=== PATIENT | female | born 1975 | race American Indian/Alaskan Native ===

== ENCOUNTER 2021-11-23 15:38 | Emergency (ER) | payer SELFPAY ==
[2021-11-23 16:16] VITALS: BP 160/85
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
[2021-11-23] MEDS ORDERED: KETOROLAC 10 MG TAB PO ONE (17:37)
[2021-11-23] MEDS ORDERED: CYCLOBENZAPRINE 10 MG TAB PO ONE (17:37)
== END 2021-11-23 18:28 | disposition home or self-care (01) ==
LOC: ED 15:38
DX: M54.50 Low back pain, unspecified (principal); I10 Essential (primary) hypertension; E11.9 Type 2 diabetes mellitus without complications; J45.909 Unspecified asthma, uncomplicated; Z79.899 Other long term (current) drug therapy; V87.7XXA Person injured in collision between other specified motor vehicles (traffic), initial encounter; Y93.89 Activity, other specified; Y92.488 Other paved roadways as the place of occurrence of the external cause; Y99.8 Other external cause status
CPT/HCPCS: 99282

== ENCOUNTER 2021-11-30 09:28 | Emergency (ER) | payer SELFPAY ==
[2021-11-30 10:38] VITALS: BP 175/100
[2021-11-30] MEDS ORDERED: CYCLOBENZAPRINE 10 MG TAB PO ONE (10:40)
[2021-11-30] MEDS ORDERED: KETOROLAC 10 MG TAB PO ONE (10:40)
--- NOTE | 2021-11-30 12:02 | XRay Report ---
RIGHT SHOULDER 3 VIEWS INDICATION: Right shoulder pain. COMPARISON: None. IMPRESSION: No acute osseous or soft tissue abnormality. No significant DJD. Signer Name: Jean San Jr, MD Signed: 11/30/2021 11:57 AM Workstation Name: [id number]
--- NOTE | 2021-11-30 12:32 | Emergency Department Report ---
ED Extremity Problem HPI - General Chief complaint: Shoulder Injury Stated complaint: RT ARM INJURY Time Seen by Provider: 11/30/21 10:38 Source: patient Mode of arrival: Ambulatory Limitations: No Limitations - History of Present Illness Initial comments: 45-year-old black female with no past medical history sent to the emergency department for evaluation of right shoulder pain. She states that she lifted some trash and fluid into the trash can yesterday and has had right shoulder and arm pain since then. She states that she is having problems lifting her arm overhead. She denies any other injury and fever. MD Complaint: extremity pain -: Sudden, days(s) (1) Location: right, upper extremity History of Same: No -: No myalgia, No arthralgia, No fever, No associated dyspnea, No associated chest pain Quality: aching Consistency: constant Worsens with: other (Movement) Associated Symptoms: denies: chest pain, shortness of breath, fever, myalgias, arthralgias, rash - Related Data Previous Rx's Medication Instructions Recorded Last Taken Type Cyclobenzaprine [Flexeril] 10 mg PO TID PRN #20 11/23/21 Unknown Rx Lidocaine [Salonpas] 1 each TP DAILY #7 patch 11/23/21 Unknown Rx Naproxen [Naprosyn] 500 mg PO BID PRN #20 tablet 11/23/21 Unknown Rx Cyclobenzaprine [Flexeril] 10 mg PO TID PRN #30 tab 11/30/21 Unknown Rx Ketorolac [Toradol] 10 mg PO Q6H PRN #12 tab 11/30/21 Unknown Rx Lidocaine [Lidoderm] 1 each TP DAILY PRN #10 patch 11/30/21 Unknown Rx Allergies Allergy/AdvReac Type Severity Reaction Status Date / Time No Known Allergies Allergy Unverified 11/23/21 16:13 ED Review of Systems ROS: Stated complaint: RT ARM INJURY Other details as noted in HPI Comment: All other systems reviewed and negative Constitutional: denies: chills, fever Respiratory: denies: shortness of breath Cardiovascular: denies: chest pain, palpitations Gastrointestinal: denies: abdominal pain, nausea, vomiting Musculoskeletal: denies: back pain Neurological: denies: headache, weakness ED Past Medical Hx - Past Medical History Hx Hypertension: Yes Hx Diabetes: Yes Hx Asthma: Yes - Social History Smoking Status: Unknown if ever smoked Substance Use Type: None - Medications Home Medications: Home Medications Medication Instructions Recorded Confirmed Last Taken Type Cyclobenzaprine [Flexeril] 10 mg PO TID PRN #20 11/23/21 Unknown Rx Lidocaine [Salonpas] 1 each TP DAILY #7 patch 11/23/21 Unknown Rx Naproxen [Naprosyn] 500 mg PO BID PRN #20 tablet 11/23/21 Unknown Rx Cyclobenzaprine [Flexeril] 10 mg PO TID PRN #30 tab 11/30/21 Unknown Rx Ketorolac [Toradol] 10 mg PO Q6H PRN #12 tab 11/30/21 Unknown Rx Lidocaine [Lidoderm] 1 each TP DAILY PRN #10 patch 11/30/21 Unknown Rx ED Physical Exam - General Limitations: No Limitations General appearance: alert, in no apparent distress - Head Head exam: Present: atraumatic, normocephalic - Eye Eye exam: Present: normal appearance. Absent: conjunctival injection - Neck Neck exam: Present: normal inspection - Respiratory Respiratory exam: Absent: respiratory distress, chest wall tenderness - Cardiovascular Cardiovascular Exam: Present: regular rate - GI/Abdominal GI/Abdominal exam: Absent: distended - Expanded Upper Extremity Exam Right Shoulder Exam: Present: full ROM, tenderness, tenderness over AC joint. Absent: swelling, abrasion, laceration, ecchymosis, deformity, crepidus, dislocation, erythema Upper Arm exam: Present: normal inspection Elbow exam: Present: normal inspection Forearm Wrist exam: Present: normal inspection Hand Wrist exam: Present: normal inspection Vascular: Present: normal capillary refill, radial pulse. Absent: vascular compromise, Pallo - Back Exam Back exam: Present: normal inspection - Neurological Exam Neurological exam: Present: alert, oriented X3. Absent: normal gait - Psychiatric Psychiatric exam: Present: normal affect, normal mood - Skin Skin exam: Present: warm, dry, intact, normal color ED Course Vital Signs 11/30/21 10:37 Temperature 98.5 F Pulse Rate 85 Respiratory 18 Rate Blood Pressure 175/100 [Left] O2 Sat by Pulse 99 Oximetry ED Medical Decision Making - Radiology Data Radiology results: report reviewed, image reviewed Right shoulder xray: IMPRESSION: No acute osseous or soft tissue abnormality. No significant DJD. - Medical Decision Making 45-year-old black female with no past medical history sent to the emergency department for evaluation of right shoulder pain. She states that she lifted some trash and fluid into the trash can yesterday and has had right shoulder and arm pain since then. She states that she is having problems lifting her arm overhead. She denies any other injury and fever. Right shoulder x-ray without any acute abnormalities noted. Patient discharged home with naproxen, Flexeril, and Lidoderm patches to use as directed. She is advised to follow-up with her primary care provider if no improvement or worsening symptoms and return to the emergency department as needed. She verbalizes understanding of and agreement with plan of care. Critical care attestation.: If time is entered above; I have spent that time in minutes in the direct care of this critically ill patient, excluding procedure time. ED Disposition Clinical Impression: Right shoulder pain Qualifiers: Chronicity: acute Qualified Code(s): M25.511 - Pain in right shoulder Disposition: 01 HOME / SELF CARE / HOMELESS Is pt being admited?: No Does the pt Need Aspirin: No Condition: Stable Instructions: How to Use Cold Therapy, [id number], Shoulder Pain, Easy -to-Read, Musculoskeletal Pain Prescriptions: Cyclobenzaprine [Flexeril] 10 mg PO TID PRN #30 tab PRN Reason: Muscle Spasm Lidocaine [Lidoderm] 1 each TP DAILY PRN #10 patch PRN Reason: Pain, Moderate (4-6) Ketorolac [Toradol] 10 mg PO Q6H PRN #12 tab PRN Reason: Pain Referrals: ALE GILLILAND MD [Staff Physician] - 3-5 Days Forms: Work/School Release Form(ED) Time of Disposition: 12:39
== END 2021-11-30 14:19 | disposition home or self-care (01) ==
LOC: ED 09:28
DX: M25.511 Pain in right shoulder (principal); I10 Essential (primary) hypertension; E11.9 Type 2 diabetes mellitus without complications; J45.909 Unspecified asthma, uncomplicated; Z79.899 Other long term (current) drug therapy
CPT/HCPCS: 99283

== ENCOUNTER 2021-12-22 22:50 | Emergency (ER) | payer SELFPAY ==
[2021-12-23 00:42] LABS: Basophils # (Auto) 0.1 K/mm3 (0.0-0.1); Eosinophils # (Auto) 0.2 K/mm3 (0.0-0.4); Eosinophils % (Auto) 3.1 % (0.0-4.3); Hematocrit 29.6 % (30.3-42.9); Hemoglobin 9.7 gm/dl (10.1-14.3); Lymphocytes # (Auto) 1.8 K/mm3 (1.2-5.4); Lymphocytes % (Auto) 26.5 % (13.4-35.0); Mean Corpuscular HGB Conc 33 % (30-34); Mean Corpuscular Volume 80 fl (79-97); Monocytes # (Auto) 0.6 K/mm3 (0.0-0.8); Monocytes % (Auto) 8.2 % (0.0-7.3); Platelet Count 323 K/mm3 (140-440); Red Cell Distribution Width 14.9 % (13.2-15.2)
[2021-12-23 00:48] LABS: Mucus,Urine 1+ /HPF; RBC,Urine < 1.0 /HPF (0.0-6.0)
[2021-12-23 01:01] LABS: Color,Urine Yellow (Yellow)
--- NOTE | 2021-12-23 03:26 | Ultrasound Report ---
ULTRASOUND PELVIS INDICATION / CLINICAL INFORMATION: vag bleed. TECHNIQUE: Transabdominal. Duplex Color Doppler used: Yes. COMPARISON: None available FINDINGS: UTERUS: Uterus measures 9.5 x 5.95 x 6.6 cm. Within the posterior fundus, subserosal hypoechoic mass compatible with fibroid measures 1.9 x 1.5 x 2.9 cm. The endometrial stripe measures approximately 3 mm. RIGHT ADNEXA: Right ovary not identified. LEFT ADNEXA: Left ovary not identified. URINARY BLADDER: No significant abnormality. FREE FLUID: None. ADDITIONAL FINDINGS: None. IMPRESSION: 1. Posterior subserosal uterine fibroid. Signer Name: Tha Leone II, MD Signed: 12/23/2021 3:22 AM Workstation Name: [id number]
--- NOTE | 2021-12-23 06:28 | Emergency Department Report ---
ED Female HPI - General Chief complaint: Vaginal Bleeding Stated complaint: VAGINAL BLEEDING Time Seen by Provider: 12/23/21 06:23 Source: patient Mode of arrival: Ambulatory Limitations: No Limitations - History of Present Illness Initial comments: Patient 46-year-old female with history of menorrhagia who presents with vaginal bleeding for 4 days. Patient complains of 4/10 abdominal cramping. There is no fevers no chills no nausea or vomiting. Patient has history of uterine fibroids. 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 Requesting Provera for vaginal bleeding. Patient denies other symptoms patient is not a smoker. MD Complaint: vaginal bleeding - Related Data Previous Rx's Medication Instructions Recorded Last Taken Type Cyclobenzaprine [Flexeril] 10 mg PO TID PRN #20 11/23/21 Unknown Rx Lidocaine [Salonpas] 1 each TP DAILY #7 patch 11/23/21 Unknown Rx Naproxen [Naprosyn] 500 mg PO BID PRN #20 tablet 11/23/21 Unknown Rx Cyclobenzaprine [Flexeril] 10 mg PO TID PRN #30 tab 11/30/21 Unknown Rx Ketorolac [Toradol] 10 mg PO Q6H PRN #12 tab 11/30/21 Unknown Rx Lidocaine [Lidoderm] 1 each TP DAILY PRN #10 patch 11/30/21 Unknown Rx Ibuprofen [Motrin 800 MG tab] 800 mg PO Q8HR PRN #30 tablet 12/23/21 Unknown Rx medroxyPROGESTERone ACETATE 10 mg PO DAILY PRN #10 tab 12/23/21 Unknown Rx [Provera] Allergies Allergy/AdvReac Type Severity Reaction Status Date / Time No Known Allergies Allergy Unverified 11/23/21 16:13 ED Review of Systems ROS: Stated complaint: VAGINAL BLEEDING Other details as noted in HPI Constitutional: denies: chills, fever Eyes: denies: eye pain, eye discharge, vision change ENT: denies: ear pain, throat pain Respiratory: denies: cough, shortness of breath, wheezing Cardiovascular: denies: chest pain, palpitations Endocrine: no symptoms reported Gastrointestinal: abdominal pain Genitourinary: abnormal menses. denies: urgency, dysuria, frequency, hematuria, discharge Musculoskeletal: denies: back pain, joint swelling, arthralgia Skin: denies: rash, lesions Neurological: denies: headache, weakness, paresthesias Psychiatric: denies: anxiety, depression Hematological/Lymphatic: denies: easy bleeding, easy bruising ED Past Medical Hx - Past Medical History Hx Hypertension: Yes (UNMEDICATED) Hx Diabetes: Yes Hx Asthma: Yes - Surgical History Past Surgical History?: Yes Hx Cholecystectomy: Yes Additional Surgical History: ETOPIC . - Social History Smoking Status: Unknown if ever smoked Substance Use Type: None - Medications Home Medications: Home Medications Medication Instructions Recorded Confirmed Last Taken Type Cyclobenzaprine [Flexeril] 10 mg PO TID PRN #20 11/23/21 Unknown Rx Lidocaine [Salonpas] 1 each TP DAILY #7 patch 11/23/21 Unknown Rx Naproxen [Naprosyn] 500 mg PO BID PRN #20 tablet 11/23/21 Unknown Rx Cyclobenzaprine [Flexeril] 10 mg PO TID PRN #30 tab 11/30/21 Unknown Rx Ketorolac [Toradol] 10 mg PO Q6H PRN #12 tab 11/30/21 Unknown Rx Lidocaine [Lidoderm] 1 each TP DAILY PRN #10 patch 11/30/21 Unknown Rx Ibuprofen [Motrin 800 MG tab] 800 mg PO Q8HR PRN #30 tablet 12/23/21 Unknown Rx medroxyPROGESTERone ACETATE 10 mg PO DAILY PRN #10 tab 12/23/21 Unknown Rx [Provera] ED Physical Exam - General Limitations: No Limitations General appearance: alert, in no apparent distress - Head Head exam: Present: normocephalic, normal inspection - Eye Eye exam: Present: EOMI Pupils: Present: normal accommodation - ENT ENT exam: Present: mucous membranes moist - Neck Neck exam: Present: normal inspection, full ROM. Absent: tenderness - Respiratory Respiratory exam: Present: normal lung sounds bilaterally. Absent: respiratory distress, wheezes - Cardiovascular Cardiovascular Exam: Present: regular rate, normal rhythm, normal heart sounds. Absent: systolic murmur, diastolic murmur, rubs, gallop - GI/Abdominal GI/Abdominal exam: Present: soft, normal bowel sounds. Absent: distended, tenderness - Rectal Rectal exam: Present: deferred - Extremities Exam Extremities exam: Present: normal inspection, full ROM, normal capillary refill. Absent: pedal edema - Back Exam Back exam: Present: normal inspection, full ROM. Absent: CVA tenderness (R), CVA tenderness (L) - Neurological Exam Neurological exam: Present: alert, oriented X3, CN II-XII intact, normal gait - Psychiatric Psychiatric exam: Present: normal affect, normal mood - Skin Skin exam: Present: warm, dry, intact, normal color. Absent: rash ED Course Vital Signs 12/22/21 23:32 Temperature 98.3 F Pulse Rate 95 H Respiratory 18 Rate Blood Pressure 175/98 O2 Sat by Pulse 100 Oximetry ED Medical Decision Making - Lab Data Result diagrams: 12/23/21 00:06 Labs 12/23/21 12/23/21 12/23/21 00:06 00:06 Unknown WBC 6.8 RBC 3.70 Hgb 9.7 L Hct 29.6 L MCV 80 MCH 26 L MCHC 33 RDW 14.9 Plt Count 323 Lymph % (Auto) 26.5 [place] % (Auto) 8.2 H Eos % (Auto) 3.1 Baso % (Auto) 1.0 Lymph # (Auto) 1.8 [place] # (Auto) 0.6 Eos # (Auto) 0.2 Baso # (Auto) 0.1 Seg Neutrophils % 61.2 Seg Neutrophils # 4.1 HCG, Quant < 2.0 Urine Color Yellow Urine Turbidity Clear Specific [place] (Man) 1.025 Ur Protein (Man) Negative Ur Ketones (Man) Negative Ur Nitrite (Man) Negative Ur Reducing Substances Not Reportable Urine Bilirubin (Man) Negative Urine Ictotest Not Reportable Leukocyte Esterase (Man) Negative Urine WBC (Auto) 1.0 Urine RBC (Auto) < 1.0 U Epithel Cells (Auto) 2.0 Urine RBC (Manual) 1+ Urine Mucus 1+ - Radiology Data Radiology results: report reviewed, image reviewed ULTRASOUND PELVIS INDICATION / CLINICAL INFORMATION: vag bleed. TECHNIQUE: Transabdominal. Duplex Color Doppler used: Yes. COMPARISON: None available FINDINGS: UTERUS: Uterus measures 9.5 x 5.95 x 6.6 cm. Within the posterior fundus, subserosal hypoechoic mass compatible with fibroid measures 1.9 x 1.5 x 2.9 cm. The endometrial stripe measures approximately 3 mm. RIGHT ADNEXA: Right ovary not identified. LEFT ADNEXA: Left ovary not identified. URINARY BLADDER: No significant abnormality. FREE FLUID: None. ADDITIONAL FINDINGS: None. IMPRESSION: 1. Posterior subserosal uterine fibroid. Signer Name: Yuliya Leone II, MD Signed: 12/23/2021 3:22 AM Workstation Name: [id number] Transcribed By: HOSSEIN Dictated By: YULIYA LEONE II, MD Electronically Authenticated By: YULIYA LEONE II, MD Signed Date/Time: 12/23/21321 DD/ 9 TD/TT: - Medical Decision Making Ultrasound consistent with intrauterine fibroid as per past. UA normal. H&H is stable. Plan DC to home with prescriptions. 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 Return to emergency department should symptoms worsen. Patient verbalized agreement and understanding with discharge plan. Patient DC'd home in stable condition at this time. Critical care attestation.: If time is entered above; I have spent that time in minutes in the direct care of this critically ill patient, excluding procedure time. ED Disposition Clinical Impression: Abnormal uterine bleeding (AUB) Uterine fibroid Qualifiers: Uterine leiomyoma location: unspecified location Qualified Code(s): D25.9 - Leiomyoma of uterus, unspecified Disposition: 01 HOME / SELF CARE / HOMELESS Is pt being admited?: No Does the pt Need Aspirin: No Condition: Stable Instructions: Abnormal Uterine Bleeding, Uterine Fibroids, [id number] Additional Instructions: Take medication as prescribed, follow-up with your LACE PAPER MACHINE OPERATOR in 2 to 3 days. Return to emergency department should symptoms worsen. Prescriptions: Ibuprofen [Motrin 800 MG tab] 800 mg PO Q8HR PRN #30 tablet PRN Reason: pain medroxyPROGESTERone ACETATE [Provera] 10 mg PO DAILY PRN #10 tab PRN Reason: vaginal bleeding Referrals: DEANGELO HERNANDEZ MD [Staff Physician] - 3-5 Days Forms: Work/School Release Form(ED) Time of Disposition: 06:31
[2021-12-23] MEDS ORDERED: traMADol 50 MG TAB PO ONE (06:52)
[2021-12-23] MEDS ORDERED: ACETAMINOPHEN 500 MG TAB PO ONE (06:52)
[2021-12-23 07:08] VITALS: BP 167/96
== END 2021-12-23 06:51 | disposition home or self-care (01) ==
LOC: ED 22:50
DX: N93.9 Abnormal uterine and vaginal bleeding, unspecified (principal); D25.9 Leiomyoma of uterus, unspecified; I10 Essential (primary) hypertension; E11.9 Type 2 diabetes mellitus without complications; J45.909 Unspecified asthma, uncomplicated; Z90.49 Acquired absence of other specified parts of digestive tract; Z79.899 Other long term (current) drug therapy
CPT/HCPCS: 36415; 76856; 81001; 84702; 85025; 99284